=== PATIENT | female | born 1945 | race Hispanic/Latino ===

== ENCOUNTER 2017-05-09 12:50 | Inpatient (IN) | payer MEDICARE, OTHER ==
[2017-05-09 12:51] VITALS: BMI 39.8
[2017-05-09] MEDS ORDERED: Bacitracin 500 Units/gm Oint Foilpak UD ONE (13:14)
[2017-05-09] MEDS ORDERED: Bacitracin Ointment 30 GM TUBE TOP ONE (13:51)
[2017-05-09 14:18] LABS: BASO % 0.7 % (0.0-2.0); EOS # 0.1 K/uL (0.0-0.7); EOS % 1.5 % (0.0-4.0); HEMATOCRIT 41.4 % (34.0-47.0); LYMPH # 0.7 K/uL (1.0-4.3); LYMPH % 14.5 % (20.0-40.0); MEAN CORPUSCULAR HEMOGLOBIN 27.5 pg (27.0-31.0); MEAN CORPUSCULAR HGB CONC 33.2 g/dL (33.0-37.0); MEAN PLATELET VOLUME 8.9 fL (7.2-11.7); MONO # 0.4 K/uL (0.0-0.8); MONO % 8.7 % (0.0-10.0); RED CELL DISTRIBUTION WIDTH 16.4 % (11.5-14.5); WHITE BLOOD COUNT 4.6 K/uL (4.8-10.8)
[2017-05-09 14:26] LABS: INR 1.3
--- NOTE | 2017-05-09 14:31 | CT ---
PROCEDURE: CT HEAD WITHOUT CONTRAST. HISTORY: head injury s/p fall. on oral anticoagulation. COMPARISON: None available. TECHNIQUE: Axial computed tomography images were obtained through the head/brain without intravenous contrast. Radiation dose: Total exam DLP = 831.87 mGy-cm. This CT exam was performed using one or more of the following dose reduction techniques: Automated exposure control, adjustment of the mA and/or kV according to patient size, and/or use of iterative reconstruction technique. FINDINGS: HEMORRHAGE: No intracranial hemorrhage. BRAIN: Diffuse atrophy with prominence of the ventricles and sulci noted. No mass effect or edema. Dense intracranial atherosclerosis. Bilateral tiny basal ganglia lacunar infarcts, likely chronic. Scattered periventricular and subcortical white matter hypodensities, which are nonspecific, but often seen with chronic microvascular ischemic disease. Please note that MRI with diffusion imaging is more sensitive in the detection of acute ischemic event. VENTRICLES: No hydrocephalus. CALVARIUM: Unremarkable. PARANASAL SINUSES: Unremarkable as visualized. No significant inflammatory changes. MASTOID AIR CELLS: Unremarkable as visualized. No inflammatory changes. OTHER FINDINGS: Left facial/ preseptal soft tissue swelling/hematoma. IMPRESSION: Left facial/ preseptal soft tissue swelling/hematoma. Generalized atrophy. Tiny bilateral probable chronic lacunar infarcts. Nonspecific white matter changes.
[2017-05-09 14:55] LABS: ALKALINE PHOSPHATASE 113 U/L (38-126); ALT/SGPT 65 U/L (9-52); AST/SGOT 36 U/L (14-36); BILIRUBIN,TOTAL 0.5 mg/dL (0.2-1.3); BLOOD UREA NITROGEN 34 mg/dL (7-17); CALCIUM 8.8 mg/dl (8.6-10.4); CARBON DIOXIDE 27 mmol/L (22-30); CHLORIDE 93 mmol/L (98-107); GFR AFRICAN-AMERICAN 54; GLUCOSE,RANDOM 577 mg/dL (65-105); MAGNESIUM 1.4 mg/dL (1.6-2.3); POTASSIUM 4.9 mmol/L (3.6-5.2); SODIUM 132 mmol/L (132-148); TOTAL PROTEIN 7.6 g/dL (6.3-8.3)
--- NOTE | 2017-05-09 14:56 | RAD ---
PROCEDURE: CHEST RADIOGRAPH, 1 VIEW HISTORY: Fall. chest pain. COMPARISON: 03/20/2017 FINDINGS: LUNGS: No consolidation. Shallow lung volumes evaluation of left lung base in particular limited -hypoventilation and large body habitus and prominent breast soft tissues-contributory. Discoid atelectasis and/or trace fibrosis medial right upper lobe- more conspicuous - possibly previously present The prior central pulmonary vascular congestion appears left PLEURA: No pneumothorax or right pleural fluid seen. Minimal left pleural effusion and/or inferolateral pleural parenchymal thickening -not excluded. There is asymmetry at to each extreme lateral upper avel thorax in that on the left probably relates to old healed minimally deformed anterior left rib fractures with a contiguous left pleural reaction and no definite interval change seen. CARDIOVASCULAR: Cardiomegaly -as before OSSEOUS STRUCTURES: No significant abnormalities. VISUALIZED UPPER ABDOMEN: Normal. OTHER FINDINGS: None. IMPRESSION: No interval consolidation. Limited evaluation of the left costophrenic angle-reasons above. Small left pleural effusion not excluded. Old healed lateral left upper rib fractures with inferred contiguous left pleural thickening/ reaction -similar. No pneumothorax
[2017-05-09] MEDS ORDERED: Magnesium Sulfate 1 gm in D5W 1 GM/100 ML BAG IVPB ONE ×2 (15:10→15:39)
[2017-05-09] MEDS ORDERED: (Novolin R) Insulin Human Regular 100 units/ml vial IV STA (15:10)
[2017-05-09] MEDS ORDERED: (Novolin R) Insulin Human Regular 100 units/ml vial ONE (15:21)
--- NOTE | 2017-05-09 15:41 | C.PDOC ---
- HPI Time Seen by Provider: 05/09/17 13:06 Chief Complaint (Nursing): Trauma History Per: Patient, EMS Injury Occurred (Timing): Just Before Arrival Description Of Injury (Context): Pt fell while walking on the sidewalk Location Of Injury: Left: Head Severity: Moderate Associated Symptoms: LOC (?) Additional History Per: Prior Records - Fall Fall:Prior To Injury: Other (Pt is not sure) Past Medical History Reviewed: Historical Data, Nursing Documentation, Vital Signs Vital Signs: Last Vital Signs Temp 97.6 F 05/09/17 12:54 Pulse 100 H 05/09/17 12:54 Resp 16 05/09/17 12:54 BP 146/82 05/09/17 12:54 Pulse Ox 98 05/09/17 12:54 - Medical History PMH: Atrial Fibrillation, CHF, COPD, HTN, Hypercholesterolemia Surgical History: Coronary Stent - [facility] Procedures ROMAN CATHOLIC OF CARDIAC RHYTHM, SINGLE (03/20/17) ULTRASONOGRAPHY OF RIGHT AND LEFT HEART, TRANSESOPHAGEAL (03/20/17) Family History: States: Unknown Family Hx - Social History Hx Alcohol Use: No Hx Substance Use: No - Immunization History Hx Tetanus Toxoid Vaccination: No Hx Influenza Vaccination: No Hx Pneumococcal Vaccination: No Review Of Systems Except As Marked, All Systems Reviewed And Found Negative. Constitutional: Negative for: Fever Cardiovascular: Positive for: Chest Pain (after fall?) Respiratory: Negative for: Hemoptysis Gastrointestinal: Negative for: Vomiting, Abdominal Pain Genitourinary: Negative for: Dysuria Musculoskeletal: Negative for: Neck Pain Neurological: Negative for: Weakness, Numbness, Seizures Physical Exam - Physical Exam Appears: No Acute Distress, Chronically Ill Skin: Normal Color, Warm, Dry Head: Swelling (left eyebrow area), Abrasion (left eyebrow) Eye(s): bilateral: PERRL, EOMI Neck: Normal ROM, No Midline Cervical Tenderness, No Step Off Deformity, Supple Chest: Symmetrical, No Deformity, Other (Pt is wearing a [employer] life vest) Cardiovascular: Rhythm Regular Respiratory: Normal Breath Sounds, No Accessory Muscle Use Gastrointestinal/Abdominal: Soft, No Tenderness Back: No Vertebral Tenderness Extremity: Normal ROM, No Deformity Neurological/Psych: Oriented x3, Normal Motor, Normal Sensation ED Course And Treatment - Laboratory Results Result Diagrams: 05/09/17 14:13 05/09/17 14:13 Lab Interpretation: Abnormal Interpretation Of Abnormal: Hyperglycemia. Mild hypomagnesemia. No signs of DKA. ECG: Interpreted By Me, Viewed By Me ECG Rhythm: Sinus Rhythm, Nonspecific Changes ECG Interpretation: Abnormal Interpretation Of ECG: Prolonged QTc Rate From EC O2 Sat by Pulse Oximetry: 98 Pulse Ox Interpretation: Normal - Radiology CXR: Viewed By Me, Read By Radiologist CXR Interpretation: Yes: Cardiomegaly, Other (No interval consolidation. Limited evaluation of the left costophrenic angle-reasons above. Small left pleural effusion not excluded. ). No: Pnemothorax - CT Scan/US CT head Other Rad Studies (CT/US): Read By Radiologist, Radiology Report Reviewed CT/US Interpretation: IMPRESSION: Left facial/ preseptal soft tissue swelling/ hematoma. Generalized atrophy. Tiny bilateral probable chronic lacunar infarcts. Nonspecific white matter changes. Progress - Interventions Interventions:: Observation, Oxygen - Medications Administered Intravenous: Other (Insulin. Mg.) - Data Reviewed Data Reviewed: Lab, Diagnostic imaging, EKG, Old records - Patient Status Patient status: Partially improved - Critical Care Citical Care: Excluding Proc Time Critical Care Time: 30 minutes - Continuity of Care Discussed patient case with:: Patient, ED Nurse, Covering for PMD Medical Decision Making Medical Decision Making: Possible syncope/LOC. Disposition Discussed With DrAngie: Les Peoples Comment: He accepted pt on his service. Doctor Will See Patient In The: Hospital Counseled Patient/Family Regarding: Studies Performed, Diagnosis - Disposition Disposition: HOSPITALIZED Disposition Time: 15:45 Condition: FAIR - Clinical Impression Clinical Impression: Fall, Acute head injury, Uncontrolled diabetes mellitus with hyperglycemia, Prolonged Q-T interval on ECG, Hypomagnesemia, On continuous oral anticoagulation
--- NOTE | 2017-05-09 17:15 | CP.PCM.HP ---
History of Present Illness - History of Present Illness History of Present Illness: fall with head trauma, CT head neg x 1 probable LOC as pt doesn't remember falling or tripping left supra orbital trauma and left rib pain without fracture or bleed Present on Admission - Present on Admission Any Indicators Present on Admission: Yes Review of Systems - Review of Systems All systems: reviewed and no additional remarkable complaints except - Respiratory Respiratory: Pain on Inspiration Past Patient History - Past Social History Smoking Status: second hand smoker Chewing Tobacco Use: No Cigar Use: No Alcohol: None Drugs: Denies Home Situation {Lives}: Alone - CARDIAC Hx Atrial Fibrillation: Yes Hx Congestive Heart Failure: Yes Hx Hypercholesterolemia: Yes Hx Hypertension: Yes - PULMONARY Hx Chronic Obstructive Pulmonary Disease (COPD): Yes - ENDOCRINE/METABOLIC Hx Diabetes Mellitus Type 2: Yes - MUSCULOSKELETAL/RHEUMATOLOGICAL Hx Falls: No - PSYCHIATRIC Hx Substance Use: No - SURGICAL HISTORY Hx Coronary Stent: Yes - ANESTHESIA Hx Anesthesia: Yes Hx Anesthesia Reactions: No Hx Malignant Hyperthermia: No Meds Allergies/Adverse Reactions: Allergies Allergy/AdvReac Type Severity Reaction Status Date / Time No Known Allergies Allergy Verified 03/20/17 10:27 Physical Exam - Constitutional Appears: No Acute Distress - Head Exam Head Exam: NORMOCEPHALIC - Eye Exam Eye Exam: Periorbital swelling, Periorbital tenderness - ENT Exam ENT Exam: Mucous Membranes Moist - Respiratory Exam Respiratory Exam: Decreased Breath Sounds - Cardiovascular Exam Cardiovascular Exam: REGULAR RHYTHM, +S1, +S2 - GI/Abdominal Exam GI & Abdominal Exam: Normal Bowel Sounds - Rectal Exam Rectal Exam: Deferred - Extremities Exam Extremities exam: Positive for: normal inspection - Neurological Exam Neurological exam: Alert, Oriented x3 - Psychiatric Exam Psychiatric exam: Normal Affect, Normal Mood - Skin Skin Exam: Intact Results - Vital Signs Recent Vital Signs: Last Vital Signs Temp 98.5 F 05/09/17 16:37 Pulse 85 05/09/17 16:37 Resp 20 05/09/17 16:37 BP 139/75 05/09/17 16:37 Pulse Ox 96 05/09/17 16:37 - Labs Result Diagrams: 05/09/17 14:13 05/09/17 14:13 Labs: Laboratory Results - last 24 hr 05/09/17 05/09/17 05/09/17 14:13 14:13 14:13 WBC 4.6 L D RBC 4.99 Hgb 13.7 Hct 41.4 MCV 83.0 MCH 27.5 MCHC 33.2 RDW 16.4 H Plt Count 131 MPV 8.9 Neut % (Auto) 74.6 Lymph % (Auto) 14.5 L [place] % (Auto) 8.7 Eos % (Auto) 1.5 Baso % (Auto) 0.7 Neut # 3.4 Lymph # 0.7 L [place] # 0.4 Eos # 0.1 Baso # 0.0 PT 14.5 H INR 1.3 APTT 27 Sodium 132 Potassium 4.9 Chloride 93 L Carbon Dioxide 27 Anion Gap 17 BUN 34 H Creatinine 1.2 Est GFR ( Amer) 54 Est GFR (Non-Af Amer) 44 POC Glucose (mg/dL) Random Glucose 577 H* D Calcium 8.8 Magnesium 1.4 L Total Bilirubin 0.5 AST 36 D ALT 65 H D Alkaline Phosphatase 113 Troponin I < 0.0120 NT-Pro-B Natriuret Pep 1880 H Total Protein 7.6 Albumin 3.8 Globulin 3.8 Albumin/Globulin Ratio 1.0 Serum Ketones Negative 05/09/17 16:29 WBC RBC Hgb Hct MCV MCH MCHC RDW Plt Count MPV Neut % (Auto) Lymph % (Auto) [place] % (Auto) Eos % (Auto) Baso % (Auto) Neut # Lymph # [place] # Eos # Baso # PT INR APTT Sodium Potassium Chloride Carbon Dioxide Anion Gap BUN Creatinine Est GFR ( Amer) Est GFR (Non-Af Amer) POC Glucose (mg/dL) 360 H Random Glucose Calcium Magnesium Total Bilirubin AST ALT Alkaline Phosphatase Troponin I NT-Pro-B Natriuret Pep Total Protein Albumin Globulin Albumin/Globulin Ratio Serum Ketones Assessment & Plan (1) Acute head injury Status: Acute (2) Hypomagnesemia Status: Acute (3) Fall Status: Acute (4) On continuous oral anticoagulation Status: Chronic (5) Prolonged Q-T interval on ECG Status: Acute (6) Uncontrolled diabetes mellitus with hyperglycemia Status: Acute (7) Diabetes 1.5, managed as type 2 Status: Chronic (8) Hyperlipidemia Status: Chronic (9) Rib pain on left side Status: Acute
[2017-05-09] MEDS: Ranolazine 500 mg Extended Release Tablets PO SCH (18:23)
[2017-05-09] MEDS: (Novolog Mix 70/30) Insulin Aspart/Insulin Aspar 100 units/ml SC SCH (21:47)
[2017-05-10 06:51] LABS: BASO % 0.6 % (0.0-2.0); EOS # 0.3 K/uL (0.0-0.7); EOS % 4.9 % (0.0-4.0); HEMATOCRIT 36.5 % (34.0-47.0); LYMPH % 18.2 % (20.0-40.0); MEAN CELL VOLUME 82.1 fL (81.0-99.0); MEAN CORPUSCULAR HGB CONC 34.1 g/dL (33.0-37.0); MEAN PLATELET VOLUME 8.8 fL (7.2-11.7); MONO # 0.8 K/uL (0.0-0.8); MONO % 14.5 % (0.0-10.0); RED CELL DISTRIBUTION WIDTH 16.7 % (11.5-14.5); WHITE BLOOD COUNT 5.8 K/uL (4.8-10.8)
[2017-05-10 06:58] LABS: BLOOD UREA NITROGEN 31 mg/dL (7-17); CALCIUM 8.7 mg/dl (8.6-10.4); CARBON DIOXIDE 29 mmol/L (22-30); CHLORIDE 93 mmol/L (98-107); CHOLESTEROL 140 mg/dL (0-199); GFR AFRICAN-AMERICAN > 60; GLUCOSE,RANDOM 369 mg/dL (65-105); MAGNESIUM 1.5 mg/dL (1.6-2.3); POTASSIUM 4.3 mmol/L (3.6-5.2); SODIUM 129 mmol/L (132-148)
[2017-05-10] MEDS: (Novolog Mix 70/30) Insulin Aspart/Insulin Aspar 100 units/ml SC SCH ×2 (08:16→21:56)
--- NOTE | 2017-05-10 09:54 | CP.PCM.CON ---
History of Present Illness - History of Present Illness History of Present Illness: The pt is a 72 year old female who had abrupt syncope walking to the bus stop, has no recollection of events. pt takes many cv medications. She can offer no other history. Review of Systems - Review of Systems All systems: reviewed and no additional remarkable complaints except (left rib pain. otherwise all other systems negative) Past Patient History - Past Medical History & Family History Past Medical History?: Yes - Past Social History Smoking Status: second hand smoker Chewing Tobacco Use: No Cigar Use: No Alcohol: None Drugs: Denies Home Situation {Lives}: Alone - CARDIAC Hx Cardiac Disorders: Yes Hx Atrial Fibrillation: Yes Hx Congestive Heart Failure: Yes Hx Hypercholesterolemia: Yes Hx Hypertension: Yes - PULMONARY Hx Respiratory Disorders: Yes Hx Chronic Obstructive Pulmonary Disease (COPD): Yes - NEUROLOGICAL Hx Neurological Disorder: No - HEENT Hx HEENT Problems: No - RENAL Hx Chronic Kidney Disease: No - ENDOCRINE/METABOLIC Hx Endocrine Disorders: Yes Hx Diabetes Mellitus Type 2: Yes - HEMATOLOGICAL/ONCOLOGICAL Hx Blood Disorders: No - INTEGUMENTARY Hx Dermatological Problems: No - MUSCULOSKELETAL/RHEUMATOLOGICAL Hx Falls: No (first fall this admission) - GASTROINTESTINAL Hx Gastrointestinal Disorders: No - GENITOURINARY/GYNECOLOGICAL Hx Genitourinary Disorders: No - PSYCHIATRIC Hx Psychophysiologic Disorder: No Hx Substance Use: No - SURGICAL HISTORY Hx Surgeries: Yes Hx Coronary Stent: Yes - ANESTHESIA Hx Anesthesia: Yes Hx Anesthesia Reactions: No Hx Malignant Hyperthermia: No Has any member of the family had a problem w/ anesthesia?: No Meds Allergies/Adverse Reactions: Allergies Allergy/AdvReac Type Severity Reaction Status Date / Time No Known Allergies Allergy Verified 03/20/17 10:27 - Medications Medications: Current Medications Amiodarone HCl (Cordarone) 400 mg PO BID [facility] Last Admin: 05/09/17 18:23 Dose: 400 mg Apixaban (Eliquis) 5 mg PO BID [facility] Last Admin: 05/09/17 18:23 Dose: 5 mg Clopidogrel Bisulfate (Plavix) 75 mg PO DAILY [facility] Famotidine (Pepcid) 20 mg PO DAILY [facility] Furosemide (Lasix) 40 mg PO DAILY [facility] Insulin Aspart (Novolog Mix 70/30 (70/30 Units/Ml)) 0 units SC [facility] PRN Reason: Protocol Last Admin: 05/10/17 08:16 Dose: 6 units Losartan Potassium (Cozaar) 100 mg PO DAILY [facility] Metformin HCl (Glucophage) 850 mg PO BID [facility] Last Admin: 05/09/17 18:23 Dose: 850 mg Metoprolol Succinate (Toprol Xl) 50 mg PO DAILY [facility] Pantoprazole Sodium (Protonix Ec Tab) 40 mg PO DAILY [facility] Ranolazine (Ranexa) 500 mg PO BID [facility] Last Admin: 05/09/17 18:23 Dose: 500 mg Rosuvastatin Calcium (Crestor) 20 mg PO HS [facility] Last Admin: 05/09/17 21:47 Dose: 20 mg Spironolactone (Aldactone) 25 mg PO DAILY [facility] Physical Exam - Constitutional Appears: No Acute Distress - Head Exam Additional comments: Left black eye. - Eye Exam Eye Exam: Periorbital swelling - ENT Exam ENT Exam: Mucous Membranes Moist - Neck Exam Neck exam: Positive for: Normal Inspection - Respiratory Exam Respiratory Exam: Clear to Auscultation Bilateral, NORMAL BREATHING PATTERN - Cardiovascular Exam Cardiovascular Exam: REGULAR RHYTHM - GI/Abdominal Exam GI & Abdominal Exam: Normal Bowel Sounds - Extremities Exam Extremities exam: Positive for: normal inspection - Back Exam Back exam: NORMAL INSPECTION - Neurological Exam Neurological exam: Alert, Oriented x3, Reflexes Normal - Psychiatric Exam Psychiatric exam: Normal Affect - Skin Skin Exam: Dry, Normal Color Results - Vital Signs Recent Vital Signs: Last Vital Signs Temp 97.9 F 05/10/17 08:12 Pulse 75 05/10/17 08:12 Resp 20 05/10/17 08:12 BP 126/80 05/10/17 08:12 Pulse Ox 96 05/10/17 08:12 - Labs Result Diagrams: 05/10/17 06:33 05/10/17 06:33 Labs: Laboratory Results - last 24 hr 05/09/17 05/09/17 05/09/17 14:13 14:13 14:13 WBC 4.6 L D RBC 4.99 Hgb 13.7 Hct 41.4 MCV 83.0 MCH 27.5 MCHC 33.2 RDW 16.4 H Plt Count 131 MPV 8.9 Neut % (Auto) 74.6 Lymph % (Auto) 14.5 L [place] % (Auto) 8.7 Eos % (Auto) 1.5 Baso % (Auto) 0.7 Neut # 3.4 Lymph # 0.7 L [place] # 0.4 Eos # 0.1 Baso # 0.0 PT 14.5 H INR 1.3 APTT 27 Sodium 132 Potassium 4.9 Chloride 93 L Carbon Dioxide 27 Anion Gap 17 BUN 34 H Creatinine 1.2 Est GFR ( Amer) 54 Est GFR (Non-Af Amer) 44 POC Glucose (mg/dL) Random Glucose 577 H* D Hemoglobin A1c Calcium 8.8 Magnesium 1.4 L Total Bilirubin 0.5 AST 36 D ALT 65 H D Alkaline Phosphatase 113 Troponin I < 0.0120 NT-Pro-B Natriuret Pep 1880 H Total Protein 7.6 Albumin 3.8 Globulin 3.8 Albumin/Globulin Ratio 1.0 Triglycerides Cholesterol LDL Cholesterol Direct HDL Cholesterol Serum Ketones Negative 05/09/17 05/09/17 05/09/17 16:29 17:57 20:55 WBC RBC Hgb Hct MCV MCH MCHC RDW Plt Count MPV Neut % (Auto) Lymph % (Auto) [place] % (Auto) Eos % (Auto) Baso % (Auto) Neut # Lymph # [place] # Eos # Baso # PT INR APTT Sodium Potassium Chloride Carbon Dioxide Anion Gap BUN Creatinine Est GFR ( Amer) Est GFR (Non-Af Amer) POC Glucose (mg/dL) 360 H 329 H 356 H Random Glucose Hemoglobin A1c Calcium Magnesium Total Bilirubin AST ALT Alkaline Phosphatase Troponin I NT-Pro-B Natriuret Pep Total Protein Albumin Globulin Albumin/Globulin Ratio Triglycerides Cholesterol LDL Cholesterol Direct HDL Cholesterol Serum Ketones 05/10/17 05/10/17 05/10/17 02:21 06:10 06:33 WBC 5.8 RBC 4.45 Hgb 12.5 Hct 36.5 MCV 82.1 MCH 28.0 MCHC 34.1 RDW 16.7 H Plt Count 133 MPV 8.8 Neut % (Auto) 61.8 Lymph % (Auto) 18.2 L [place] % (Auto) 14.5 H Eos % (Auto) 4.9 H Baso % (Auto) 0.6 Neut # 3.6 Lymph # 1.0 [place] # 0.8 Eos # 0.3 Baso # 0.0 PT INR APTT Sodium Potassium Chloride Carbon Dioxide Anion Gap BUN Creatinine Est GFR ( Amer) Est GFR (Non-Af Amer) POC Glucose (mg/dL) 361 H 342 H Random Glucose Hemoglobin A1c Calcium Magnesium Total Bilirubin AST ALT Alkaline Phosphatase Troponin I NT-Pro-B Natriuret Pep Total Protein Albumin Globulin Albumin/Globulin Ratio Triglycerides Cholesterol LDL Cholesterol Direct HDL Cholesterol Serum Ketones 05/10/17 05/10/17 06:33 06:33 WBC RBC Hgb Hct MCV MCH MCHC RDW Plt Count MPV Neut % (Auto) Lymph % (Auto) [place] % (Auto) Eos % (Auto) Baso % (Auto) Neut # Lymph # [place] # Eos # Baso # PT INR APTT Sodium 129 L Potassium 4.3 Chloride 93 L Carbon Dioxide 29 Anion Gap 11 BUN 31 H Creatinine 1.0 Est GFR ( Amer) > 60 Est GFR (Non-Af Amer) 55 POC Glucose (mg/dL) Random Glucose 369 H Hemoglobin A1c 10.8 H Calcium 8.7 Magnesium 1.5 L Total Bilirubin AST ALT Alkaline Phosphatase Troponin I NT-Pro-B Natriuret Pep Total Protein Albumin Globulin Albumin/Globulin Ratio Triglycerides 228 H D Cholesterol 140 LDL Cholesterol Direct 78 HDL Cholesterol 30 Serum Ketones - EKG Data EKG Interpreted by: Myself EKG shows normal: Sinus rhythm (nsr, leftward axis) Assessment & Plan - Assessment and Plan (Free Text) Assessment: 1. A review of the patients medications suggest a history of atrial fib, and angina, with chf. I will check our outpatient office records to see if she has been seen in our practice. Once her past medical history is known, additional recommendations can be made. Continue telemetry. Echo. 2. In the setting of syncope, eliquis risks and benefits need to be addressed. in addition, I need clarification for the need for plavix.
[2017-05-10] MEDS: Metoprolol Succinate 50 mg XL Tab PO SCH (11:20)
[2017-05-10] MEDS: Pantoprazole 40 mg EC Tab PO SCH (11:21)
[2017-05-10] MEDS: Ranolazine 500 mg Extended Release Tablets PO SCH (11:35)
--- NOTE | 2017-05-10 12:51 | CT ---
PROCEDURE: CT HEAD WITHOUT CONTRAST. HISTORY: trauma on eliquis COMPARISON: 05/09/2017 TECHNIQUE: Axial computed tomography images were obtained through the head/brain without intravenous contrast. Radiation dose: Total exam DLP = 819.20 mGy-cm. This CT exam was performed using one or more of the following dose reduction techniques: Automated exposure control, adjustment of the mA and/or kV according to patient size, and/or use of iterative reconstruction technique. FINDINGS: HEMORRHAGE: No intracranial hemorrhage. BRAIN: No mass effect or edema. Moderate diffuse age-appropriate cerebral atrophy. Moderate periventricular patchy deep and subcortical white matter lucency consistent with microvascular ischemic change. No evidence of acute infarct. Old right thalamic lacunar infarct. Old right lentiform nucleus lacunar infarct. VENTRICLES: Unremarkable. No hydrocephalus. CALVARIUM: Unremarkable. PARANASAL SINUSES: Unremarkable as visualized. No significant inflammatory changes. MASTOID AIR CELLS: Unremarkable as visualized. No inflammatory changes. OTHER FINDINGS: None. IMPRESSION: No intracranial hemorrhage. Age appropriate involutional change. Old right splenic and left lentiform nucleus lacunar infarcts.
--- NOTE | 2017-05-10 13:23 | CP.PCM.PN ---
Subjective - Date & Time of Evaluation Date of Evaluation: 05/10/17 Time of Evaluation: 13:19 - Subjective Subjective: feels better overall today will discuss with cardio Objective - Vital Signs/Intake and Output Vital Signs (last 24 hours): Temp Pulse Resp BP Pulse Ox 97.9 F 75 20 159/76 H 96 05/10/17 08:12 05/10/17 08:12 05/10/17 08:12 05/10/17 11:22 05/10/17 08:12 Intake and Output: 05/10/17 05/10/17 06:59 18:59 Intake Total 440 Balance 440 - Medications Medications: Current Medications Amiodarone HCl (Cordarone) 400 mg PO BID [facility] Last Admin: 05/10/17 11:22 Dose: 400 mg Apixaban (Eliquis) 5 mg PO BID [facility] Last Admin: 05/10/17 11:21 Dose: 5 mg Clopidogrel Bisulfate (Plavix) 75 mg PO DAILY [facility] Last Admin: 05/10/17 11:20 Dose: 75 mg Famotidine (Pepcid) 20 mg PO DAILY [facility] Last Admin: 05/10/17 11:22 Dose: 20 mg Furosemide (Lasix) 40 mg PO DAILY [facility] Last Admin: 05/10/17 11:22 Dose: 40 mg Insulin Aspart (Novolog Mix 70/30 (70/30 Units/Ml)) 0 units SC [facility] PRN Reason: Protocol Last Admin: 05/10/17 08:16 Dose: 6 units Losartan Potassium (Cozaar) 100 mg PO DAILY [facility] Last Admin: 05/10/17 11:22 Dose: 100 mg Metformin HCl (Glucophage) 850 mg PO BID [facility] Last Admin: 05/10/17 11:35 Dose: 850 mg Metoprolol Succinate (Toprol Xl) 50 mg PO DAILY [facility] Last Admin: 05/10/17 11:20 Dose: 50 mg Pantoprazole Sodium (Protonix Ec Tab) 40 mg PO DAILY [facility] Last Admin: 05/10/17 11:21 Dose: 40 mg Ranolazine (Ranexa) 500 mg PO BID [facility] Last Admin: 05/10/17 11:35 Dose: 500 mg Rosuvastatin Calcium (Crestor) 20 mg PO HS [facility] Last Admin: 05/09/17 21:47 Dose: 20 mg Spironolactone (Aldactone) 25 mg PO DAILY [facility] Last Admin: 12/20/17 11:21 Dose: 25 mg - Labs Labs: 05/10/17 06:33 05/10/17 06:33 PT 14.5 SECONDS (9.7-12.2) H 05/09/17 14:13 INR 1.3 05/09/17 14:13 APTT 27 SECONDS (21-34) 05/09/17 14:13 - Constitutional Appears: No Acute Distress - Head Exam Head Exam: NORMOCEPHALIC - Eye Exam Eye Exam: Normal appearance - ENT Exam ENT Exam: Mucous Membranes Moist - Respiratory Exam Respiratory Exam: Clear to Ausculation Bilateral - Cardiovascular Exam Cardiovascular Exam: REGULAR RHYTHM, +S1, +S2 - GI/Abdominal Exam GI & Abdominal Exam: Normal Bowel Sounds - Rectal Exam Rectal Exam: Deferred - Neurological Exam Neurological Exam: Alert, Awake, Oriented x3 - Psychiatric Exam Psychiatric exam: Normal Affect, Normal Mood - Skin Skin Exam: Intact Assessment and Plan (1) Acute head injury Status: Acute (2) Hypomagnesemia Status: Acute (3) Fall Status: Acute (4) On continuous oral anticoagulation Status: Chronic (5) Prolonged Q-T interval on ECG Status: Acute (6) Uncontrolled diabetes mellitus with hyperglycemia Status: Acute (7) Diabetes 1.5, managed as type 2 Status: Chronic (8) Hyperlipidemia Status: Chronic (9) Rib pain on left side Status: Acute
--- NOTE | 2017-05-10 13:54 | VASCLAB ---
PROCEDURE: HISTORY: syncope COMPARISON: None available. TECHNIQUE: Grayscale and duplex Doppler evaluation of the cervical carotid and vertebral arteries were performed. The common carotid, carotid bifurcations and cervical Internal Carotid Artery (ICA) and proximal External Carotid Artery (ECA) were evaluated. The vertebral arteries were evaluated for gross patency and flow direction. Report prepared by Jer Rowe, BS, RVT FINDINGS: RIGHT CAROTID ARTERIES: 1. Common Carotid Artery: No significant focal plaque formation of the right common carotid artery. Maximum Peak Systolic velocity: 61 cm/sec: End-diastolic velocity 17 cm/sec. 2. Carotid Bifurcation: Calcific plaque formation. Maximum Peak Systolic velocity: 78 cm/sec: End-diastolic velocity 20 cm/sec. 3. Internal Carotid Artery: Minimal plaque formation of the right proximal ICA which does not result in hemodynamically significant stenosis. Plaque description: Calcific 3.1. Proximal Segment: Peak systolic velocity 109 cm/sec: End-diastolic velocity 22 cm/sec - % stenosis 0-15% 3.2. Middle Segment: Peak systolic velocity 119 cm/sec: End-diastolic velocity 26 cm/sec - % stenosis 0-15% 3.3. Distal Segment: Peak systolic velocity 73 cm/sec: End-diastolic velocity 22 cm/sec - % stenosis 0-15% 4. External Carotid Artery: No significant focal plaque formation. Peak systolic velocity 211 cm/sec 5. ICA/CCA Ratio: 1.9 LEFT CAROTID ARTERIES: 1. Common Carotid Artery: No significant focal plaque formation of the left common carotid artery. Maximum Peak Systolic velocity: 88 cm/sec: End-diastolic velocity 16 cm/sec. 2. Carotid Bifurcation: Calcific plaque formation. Maximum Peak Systolic velocity: 91 cm/sec: End-diastolic velocity 16 cm/sec. 3. Internal Carotid Artery: Minimal plaque formation of the left proximal ICA which does not result in hemodynamically significant stenosis. Plaque description: Calcific 3.1. Proximal Segment: Peak systolic velocity 111 cm/sec: End-diastolic velocity 30 cm/sec - % stenosis 0-15% 3.2. Middle Segment: Peak systolic velocity 93 cm/sec: End-diastolic velocity 20 cm/sec - % stenosis 0-15% 3.3. Distal Segment: Peak systolic velocity 68 cm/sec: End-diastolic velocity 11 cm/sec - % stenosis 0-15% 4. External Carotid Artery: No significant focal plaque formation. Peak systolic velocity 220 cm/sec 5. ICA/CCA Ratio: 1.3 VERTEBRAL ARTERIES: 1. Right Vertebral Artery: The right vertebral artery flow direction is antegrade. 2. Left Vertebral Artery: The left vertebral artery flow direction is antegrade. OTHER FINDINGS: 1. Right Brachial Blood pressure: 146 mmHg. 2. Left Brachial Blood pressure: 140 mmHg. IMPRESSION: RIGHT: Duplex scan does not suggest hemodynamically significant stenosis of the right extracranial carotid arteries. LEFT: Duplex scan does not suggest hemodynamically significant stenosis of the left extracranial carotid arteries.
[2017-05-10] MEDS ORDERED: Magnesium Sulfate 1 gm in D5W 1 GM/100 ML BAG IVPB ONE (14:00)
--- NOTE | 2017-05-10 23:23 | CARD ---
APPROVED REPORT EKG Measurement Heart [id number] <Conclusion> Normal sinus rhythm Rightward axis Prolonged QT Abnormal ECG
[2017-05-11 07:58] LABS: BASO % 0.8 % (0.0-2.0); EOS # 0.3 K/uL (0.0-0.7); HEMATOCRIT 35.7 % (34.0-47.0); LYMPH # 1.2 K/uL (1.0-4.3); LYMPH % 22.8 % (20.0-40.0); MEAN CELL VOLUME 81.9 fL (81.0-99.0); MEAN CORPUSCULAR HGB CONC 34.3 g/dL (33.0-37.0); MEAN PLATELET VOLUME 8.9 fL (7.2-11.7); MONO # 0.9 K/uL (0.0-0.8); MONO % 17.6 % (0.0-10.0); WHITE BLOOD COUNT 5.2 K/uL (4.8-10.8)
[2017-05-11] MEDS: (Novolog Mix 70/30) Insulin Aspart/Insulin Aspar 100 units/ml SC SCH (08:07)
[2017-05-11 08:21] LABS: CALCIUM 8.6 mg/dl (8.6-10.4); MAGNESIUM 1.7 mg/dL (1.6-2.3); POTASSIUM 4.6 mmol/L (3.6-5.2)
[2017-05-11] MEDS: Metoprolol Succinate 50 mg XL Tab PO SCH (09:26)
[2017-05-11] MEDS: Pantoprazole 40 mg EC Tab PO SCH (09:26)
--- NOTE | 2017-05-11 10:04 | CP.PCM.PN ---
Subjective - Date & Time of Evaluation Date of Evaluation: 05/11/17 Time of Evaluation: 10:01 - Subjective Subjective: Pt feels better Objective - Vital Signs/Intake and Output Vital Signs (last 24 hours): Temp Pulse Resp BP Pulse Ox 98.3 F 71 20 120/62 100 05/11/17 08:38 05/11/17 08:57 05/11/17 08:38 05/11/17 09:28 05/11/17 08:38 Intake and Output: 05/11/17 05/11/17 06:59 18:59 Intake Total 120 Balance 120 - Medications Medications: Current Medications Acetaminophen (Tylenol 325mg Tab) 650 mg PO Q6 PRN PRN Reason: Pain, Mild (1-3) Apixaban (Eliquis) 5 mg PO BID [facility] Last Admin: 05/11/17 09:27 Dose: 5 mg Clopidogrel Bisulfate (Plavix) 75 mg PO DAILY [facility] Last Admin: 05/11/17 09:26 Dose: 75 mg Famotidine (Pepcid) 20 mg PO DAILY [facility] Last Admin: 05/11/17 09:26 Dose: 20 mg Furosemide (Lasix) 40 mg PO DAILY [facility] Last Admin: 05/11/17 09:28 Dose: 40 mg Glipizide (Glucotrol) 5 mg PO ACB [facility] Last Admin: 05/11/17 08:07 Dose: 5 mg Insulin Aspart (Novolog Mix 70/30 (70/30 Units/Ml)) 0 units SC ACBHS [facility] PRN Reason: Protocol Last Admin: 05/11/17 08:07 Dose: 3 units Losartan Potassium (Cozaar) 100 mg PO DAILY [facility] Last Admin: 05/11/17 09:27 Dose: 100 mg Metformin HCl (Glucophage) 850 mg PO BID [facility] Last Admin: 05/11/17 09:27 Dose: 850 mg Metoprolol Succinate (Toprol Xl) 50 mg PO DAILY [facility] Last Admin: 05/11/17 09:26 Dose: 50 mg Pantoprazole Sodium (Protonix Ec Tab) 40 mg PO DAILY [facility] Last Admin: 05/11/17 09:26 Dose: 40 mg Rosuvastatin Calcium (Crestor) 20 mg PO HS [facility] Last Admin: 05/10/17 21:56 Dose: 20 mg Spironolactone (Aldactone) 25 mg PO DAILY [facility] Last Admin: 05/11/17 09:27 Dose: 25 mg - Labs Labs: 05/11/17 07:47 05/11/17 07:47 PT 14.5 SECONDS (9.7-12.2) H 05/09/17 14:13 INR 1.3 05/09/17 14:13 APTT 27 SECONDS (21-34) 05/09/17 14:13 - Constitutional Appears: Well, No Acute Distress - Head Exam Additional comments: left eye ecchymosis - Eye Exam Eye Exam: EOMI - Neck Exam Neck Exam: Full ROM - Respiratory Exam Respiratory Exam: Clear to Ausculation Bilateral - Cardiovascular Exam Cardiovascular Exam: REGULAR RHYTHM - GI/Abdominal Exam GI & Abdominal Exam: Normal Bowel Sounds - Exam External exam: NORMAL EXTERNAL EXAM - Extremities Exam Extremities Exam: Normal Inspection - Back Exam Back Exam: NORMAL INSPECTION - Neurological Exam Neurological Exam: Alert, Awake, Normal Gait - Psychiatric Exam Psychiatric exam: Normal Affect - Skin Skin Exam: Normal Color Assessment and Plan - Assessment and Plan (Free Text) Assessment: 1. Severe ischemic cardiomyopathy: abrupt syncope: Pt advised to have syncope, she agrees and will be transferred. Hold fe.
--- NOTE | 2017-05-11 11:15 | RAD ---
PROCEDURE: Radiographs of the Chest and Left Ribs. HISTORY: trauma COMPARISON: None available. TECHNIQUE: Frontal radiograph of the chest and multiple oblique radiographs of the left ribs were obtained. FINDINGS: LEFT RIBS: There are multiple old fracture deformities in the left anterior ribs. There is mild diffuse bone demineralization. LUNGS: The lungs are well inflated. PLEURA: No pneumothorax or pleural fluid. CARDIOVASCULAR: Normal sized heart. No pulmonary vascular congestion. OTHER FINDINGS: None. IMPRESSION: Multiple old fracture deformities in the left anterior ribs. No acute fracture.
--- NOTE | 2017-05-11 16:41 | CP.PCM.PN ---
Subjective - Date & Time of Evaluation Date of Evaluation: 05/11/17 Time of Evaluation: 16:35 - Subjective Subjective: discussed with pt and cardio the need for AICD implant for transfer to [facility] when bed available Objective - Vital Signs/Intake and Output Vital Signs (last 24 hours): Temp Pulse Resp BP Pulse Ox 98.1 F 73 18 119/76 95 05/11/17 16:03 05/11/17 16:03 05/11/17 16:03 05/11/17 16:03 05/11/17 16:03 Intake and Output: 05/11/17 05/11/17 06:59 18:59 Intake Total 120 Balance 120 - Medications Medications: Current Medications Acetaminophen (Tylenol 325mg Tab) 650 mg PO Q6 PRN PRN Reason: Pain, Mild (1-3) Apixaban (Eliquis) 5 mg PO BID [facility] Last Admin: 05/11/17 09:27 Dose: 5 mg Famotidine (Pepcid) 20 mg PO DAILY [facility] Last Admin: 05/11/17 09:26 Dose: 20 mg Furosemide (Lasix) 40 mg PO DAILY [facility] Last Admin: 05/11/17 09:28 Dose: 40 mg Glipizide (Glucotrol) 5 mg PO ACB [facility] Last Admin: 05/11/17 08:07 Dose: 5 mg Metformin HCl (Glucophage) 850 mg PO BID [facility] Last Admin: 05/11/17 09:27 Dose: 850 mg Metoprolol Succinate (Toprol Xl) 50 mg PO DAILY [facility] Last Admin: 05/11/17 09:26 Dose: 50 mg Pantoprazole Sodium (Protonix Ec Tab) 40 mg PO DAILY [facility] Last Admin: 05/11/17 09:26 Dose: 40 mg Polyethylene Glycol (Miralax) 17 gm PO BID [facility] Rosuvastatin Calcium (Crestor) 20 mg PO HS [facility] Last Admin: 05/10/17 21:56 Dose: 20 mg Spironolactone (Aldactone) 25 mg PO DAILY [facility] Last Admin: 05/11/17 09:27 Dose: 25 mg - Labs Labs: 05/11/17 07:47 05/11/17 07:47 PT 14.5 SECONDS (9.7-12.2) H 05/09/17 14:13 INR 1.3 05/09/17 14:13 APTT 27 SECONDS (21-34) 05/09/17 14:13 - Constitutional Appears: No Acute Distress - Head Exam Head Exam: NORMOCEPHALIC - Eye Exam Eye Exam: Normal appearance, Periorbital tenderness - ENT Exam ENT Exam: Mucous Membranes Moist - Respiratory Exam Respiratory Exam: NORMAL BREATHING PATTERN - Cardiovascular Exam Cardiovascular Exam: REGULAR RHYTHM, +S1, +S2 - GI/Abdominal Exam GI & Abdominal Exam: Normal Bowel Sounds - Rectal Exam Rectal Exam: Deferred - Neurological Exam Neurological Exam: Alert, Awake, Oriented x3 - Psychiatric Exam Psychiatric exam: Normal Affect, Normal Mood - Skin Skin Exam: Intact Assessment and Plan (1) Acute head injury Status: Acute (2) Hypomagnesemia Status: Acute (3) Fall Status: Acute (4) On continuous oral anticoagulation Status: Chronic (5) Prolonged Q-T interval on ECG Status: Acute (6) Uncontrolled diabetes mellitus with hyperglycemia Status: Acute (7) Diabetes 1.5, managed as type 2 Status: Chronic (8) Hyperlipidemia Status: Chronic (9) Rib pain on left side Status: Acute
--- NOTE | 2017-05-11 16:53 | CARD ---
APPROVED REPORT EXAM: Two-dimensional and M-mode echocardiogram with Doppler and color Doppler. Other Information Quality : GoodRhythm : INDICATION LV Function:Systolic 2D DIMENSIONS IVSd1.4 (0.7-1.1cm)LVDd4.8 (3.9-5.9cm) PWd1.1 (0.7-1.1cm)LVDs3.9 (2.5-4.0cm) FS (%) 18.1 % M-Mode DIMENSIONS Left Atrium (MM)4.90 (2.5-4.0cm)Aortic Root3.38 (2.2-3.7cm) Aortic Cusp Exc.1.97 (1.5-2.0cm) Mitral Valve MV E Kyxkttqn06.7cm/sMV A Hgsrucqe662.4cm/sE/A ratio0.4 TDI E/Lateral E'0.0E/Medial E'0.0 Tricuspid Valve TR Peak Blgiecrr395pb/sTR Peak Gr.[id number] LEFT VENTRICLE The left ventricle is normal size. There is mild asymmetric left ventricular hypertrophy. Left ventricle systolic function is moderately to severely impaired. Estimated Ejection Fraction is 30-35%. There is moderate to severe hypokinesis to akinesis in the mid-anterior wall consistent with CAD. Transmitral Doppler flow pattern is abnormal.Grade I-abnormal relaxation pattern. No left ventricle thrombus noted on this study. RIGHT VENTRICLE The right ventricle is normal size. The right ventricular systolic function is normal. ATRIA The left atrium is moderately dilated. The right atrium size is normal. AORTIC VALVE The aortic valve is mildly sclerotic. The aortic valve is trileaflet. No aortic regurgitation is present. There is no aortic valvular stenosis. There is no aortic valvular vegetation. MITRAL VALVE Mitral annular calcification is moderate. There is no evidence of mitral valve prolapse. There is no mitral valve stenosis. There is no mitral valve regurgitation noted. TRICUSPID VALVE The tricuspid valve is normal in structure. There is no tricuspid valve regurgitation noted. There is no tricuspid valve prolapse or vegetation. There is no tricuspid valve stenosis. PULMONIC VALVE The pulmonary valve is normal in structure. There is no pulmonic valvular regurgitation. There is no pulmonic valvular stenosis. GREAT VESSELS The aortic root is normal in size. The IVC is normal in size and collapses >50% with inspiration. PERICARDIAL EFFUSION There is no pericardial effusion. There is no pleural effusion. <Conclusion> The left ventricle is normal size. There is mild asymmetric left ventricular hypertrophy. Left ventricle systolic function is moderately to severely impaired. Estimated Ejection Fraction is 30-35%. There is moderate to severe hypokinesis to akinesis in the mid-anterior wall consistent with CAD. Transmitral Doppler flow pattern is abnormal.Grade I-abnormal relaxation pattern. The right ventricle is normal size. The right ventricular systolic function is normal. The left atrium is moderately dilated. The right atrium size is normal.
--- NOTE | 2017-05-11 17:00 | CP.PCM.DIS ---
Provider - Provider Date of Admission: 05/10/17 13:38 Attending physician: Les Peoples MD Time Spent in preparation of Discharge (in minutes): 25 Diagnosis - Discharge Diagnosis (1) Acute head injury Status: Acute (2) Hypomagnesemia Status: Acute (3) Fall Status: Acute (4) On continuous oral anticoagulation Status: Chronic (5) Prolonged Q-T interval on ECG Status: Acute (6) Uncontrolled diabetes mellitus with hyperglycemia Status: Acute (7) Diabetes 1.5, managed as type 2 Status: Chronic (8) Hyperlipidemia Status: Chronic (9) Rib pain on left side Status: Acute Hospital Course - Lab Results Lab Results: Most Recent Lab Values WBC 5.2 K/uL (4.8-10.8) 05/11/17 07:47 RBC 4.35 Mil/uL (3.80-5.20) 05/11/17 07:47 Hgb 12.2 g/dL (11.0-16.0) 05/11/17 07:47 Hct 35.7 % (34.0-47.0) 05/11/17 07:47 MCV 81.9 fL (81.0-99.0) 05/11/17 07:47 MCH 28.0 pg (27.0-31.0) 05/11/17 07:47 MCHC 34.3 g/dL (33.0-37.0) 05/11/17 07:47 RDW 17.0 % (11.5-14.5) H 05/11/17 07:47 Plt Count 128 K/uL (130-400) L 05/11/17 07:47 MPV 8.9 fL (7.2-11.7) 05/11/17 07:47 Neut % (Auto) 53.8 % (50.0-75.0) 05/11/17 07:47 Lymph % (Auto) 22.8 % (20.0-40.0) 05/11/17 07:47 [place] % (Auto) 17.6 % (0.0-10.0) H 05/11/17 07:47 Eos % (Auto) 5.0 % (0.0-4.0) H 05/11/17 07:47 Baso % (Auto) 0.8 % (0.0-2.0) 05/11/17 07:47 Neut # 2.8 K/uL (1.8-7.0) 05/11/17 07:47 Lymph # 1.2 K/uL (1.0-4.3) 05/11/17 07:47 [place] # 0.9 K/uL (0.0-0.8) H 05/11/17 07:47 Eos # 0.3 K/uL (0.0-0.7) 05/11/17 07:47 Baso # 0.0 K/uL (0.0-0.2) 05/11/17 07:47 PT 14.5 SECONDS (9.7-12.2) H 05/09/17 14:13 INR 1.3 05/09/17 14:13 APTT 27 SECONDS (21-34) 05/09/17 14:13 Sodium 129 mmol/L (132-148) L 05/11/17 07:47 Potassium 4.6 mmol/L (3.6-5.2) 05/11/17 07:47 Chloride 93 mmol/L (98-107) L 05/11/17 07:47 Carbon Dioxide 30 mmol/L (22-30) 05/11/17 07:47 Anion Gap 11 (10-20) 05/11/17 07:47 BUN 32 mg/dL (7-17) H 05/11/17 07:47 Creatinine 1.1 mg/dL (0.7-1.2) 05/11/17 07:47 Est GFR ( Amer) 59 05/11/17 07:47 Est GFR (Non-Af Amer) 49 05/11/17 07:47 POC Glucose (mg/dL) 359 mg/dL (65-110) H 05/11/17 12:01 Random Glucose 284 mg/dL (65-105) H 05/11/17 07:47 Hemoglobin A1c 10.8 % (4.2-6.5) H 05/10/17 06:33 Calcium 8.6 mg/dl (8.6-10.4) 05/11/17 07:47 Magnesium 1.7 mg/dL (1.6-2.3) 05/11/17 07:47 Total Bilirubin 0.5 mg/dL (0.2-1.3) 05/09/17 14:13 AST 36 U/L (14-36) D 05/09/17 14:13 ALT 65 U/L (9-52) H D 05/09/17 14:13 Alkaline Phosphatase 113 U/L (38-126) 05/09/17 14:13 Troponin I < 0.0120 ng/mL (0.00-0.120) 05/09/17 14:13 NT-Pro-B Natriuret Pep 1880 pg/mL (0-900) H 05/09/17 14:13 Total Protein 7.6 g/dL (6.3-8.3) 05/09/17 14:13 Albumin 3.8 g/dL (3.5-5.0) 05/09/17 14:13 Globulin 3.8 gm/dL (2.2-3.9) 05/09/17 14:13 Albumin/Globulin Ratio 1.0 (1.0-2.1) 05/09/17 14:13 Triglycerides 228 mg/dL (0-149) H D 05/10/17 06:33 Cholesterol 140 mg/dL (0-199) 05/10/17 06:33 LDL Cholesterol Direct 78 mg/dL (0-129) 05/10/17 06:33 HDL Cholesterol 30 mg/dL (30-70) 05/10/17 06:33 Serum Ketones Negative (NEGATIVE) 05/09/17 14:13 Discharge Exam - Head Exam Head Exam: NORMOCEPHALIC - Eye Exam Eye Exam: Periorbital tenderness - ENT Exam ENT Exam: Mucous Membranes Moist - Respiratory Exam Respiratory Exam: NORMAL BREATHING PATTERN - Cardiovascular Exam Cardiovascular Exam: REGULAR RHYTHM, +S1, +S2 - GI/Abdominal Exam GI & Abdominal Exam: Normal Bowel Sounds - Rectal Exam Rectal Exam: Deferred - Neurological Exam Neurological exam: Alert, Oriented x3 - Psychiatric Exam Psychiatric exam: Normal Affect, Normal Mood - Skin Skin Exam: Intact Discharge Plan - Follow Up Plan Condition: STABLE Disposition: Trans to Other Acute Care Hosp Instructions: Hypertension (DC), Hypertension (GEN)
[2017-05-11] MEDS ORDERED: (Novolog Mix 70/30) Insulin Aspart/Insulin Aspar 100 units/ml SC SCH (18:00)
[2017-05-11] MEDS ORDERED: POLYETHYLENE GLYCOL 3350 17 GM/Dose PACKET PO SCH (18:00)
[2017-05-11] MEDS ORDERED: (Novolin N) Insulin Human Isophane (NPH) 100 u/ml 10 ml vial SC SCH (18:00)
[2017-05-11 19:43] VITALS: BP 134/79; PULSE 76; RESP 20; TEMP 97.3; O2SAT 96
[2017-05-11] MEDS ORDERED: (Novolin R) Insulin Human Regular 100 units/ml vial SC SCH (22:00)
== END 2017-05-11 19:51 | disposition short-term general hospital (02) | DRG 914 ==
LOC: C.ER 12:50 → C.9E 15:49 → C.6T 16:30 → OBSVTOIN 05-10 13:38
PROVIDERS: ADMIT Internal Medicine Pulmonary Disease; ATTEND Internal Medicine Pulmonary Disease
DX: S09.90XA Unspecified injury of head, initial encounter (principal); E11.65 Type 2 diabetes mellitus with hyperglycemia; E83.42 Hypomagnesemia; E78.5 Hyperlipidemia, unspecified; I25.5 Ischemic cardiomyopathy